=== PATIENT | male | born 1965 | race Caucasian/White ===

== ENCOUNTER → 2016-07-05 | Outpatient (CLI) | payer OTHER ==
[~2016-07-05] MED LIST: HYDR-3454 PO; HYDR-3583 PO; METH4TAB PO; PNT40TEC PO; SCR1T PO; TRM50T PO; VARE1TAB19
--- NOTE | 2016-07-05 13:49 | Diagnostic Imaging Report ---
AP and frog-leg lateral views of the left hip. INDICATION: Left hip pain. FINDINGS: There is mild joint space narrowing and minimal subchondral sclerosis. There is minimal osteophyte formation. No fracture, dislocation, or radiopaque foreign body. IMPRESSION: Mild degenerative changes. Dictated by: Dictated on workstation # [id number]
--- NOTE | 2016-07-05 14:44 | Diagnostic Imaging Report ---
Two views of the right shoulder. INDICATION: Right shoulder pain. FINDINGS: No fracture or focal osseous lesion seen. No significant degenerative changes in the glenohumeral or acromioclavicular joints. IMPRESSION: Unremarkable exam. Dictated by: Dictated on workstation # [id number]
== END ==
LOC: RAD 09:38
PROVIDERS: ATTEND Neuromusculoskeletal Medicine, Sports Medicine
DX: Z02.71 Encounter for disability determination (principal)
CPT/HCPCS: 73030; 73502

== ENCOUNTER 2018-09-25 18:37 | Emergency (ER) | payer SELFPAY ==
[~2018-09-25] VITALS: Ht 180.3 cm; Wt 68.0 kg
[2018-09-25] MEDS ORDERED: TETANUS,DIPTH,PERTUSS P/F (BOOSTRIX) 0.5 ML VIAL IM ONE (19:00)
[2018-09-25 19:02] LABS: BASOPHILS # (AUTO) 0.1 10^3/uL (0.0-0.1); BASOPHILS % (AUTO) 1 % (0-10); EOSINOPHILS # (AUTO) 0.4 10^3/uL (0.0-0.3); EOSINOPHILS % (AUTO) 3 % (0-10); HEMATOCRIT 40 % (40-54); HEMOGLOBIN 13.9 G/DL (13.3-17.7); LYMPHOCYTES # (AUTO) 3.7 X 10^3 (1.0-4.0); LYMPHOCYTES % (AUTO) 31 % (12-44); MEAN CORPUSCULAR HEMOGLOBIN 32 PG (25-34); MEAN CORPUSCULAR HGB CONC 34 G/DL (32-36); MEAN CORPUSCULAR VOLUME 92 FL (80-99); MEAN PLATELET VOLUME 8.8 FL (7.4-10.4); MONOCYTES # (AUTO) 1.5 X 10^3 (0.0-1.0); MONOCYTES % (AUTO) 12 % (0-12); NEUTROPHILS # (AUTO) 6.6 X 10^3 (1.8-7.8); NEUTROPHILS % (AUTO) 54 % (42-75); PLATELET COUNT 392 10^3/uL (130-400); RED CELL DISTRIBUTION WIDTH 13.2 % (10.0-14.5); WHITE BLOOD COUNT 12.2 10^3/uL (4.3-11.0)
[2018-09-25 19:14] LABS: PROTHROMBIN TIME PATIENT 13.5 SEC (12.2-14.7)
[2018-09-25] MEDS ORDERED: LACTATED RINGERS 1,000 ML IV ONE (19:15)
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
[2018-09-25 19:22] LABS: ALANINE AMINOTRANSFERASE 25 U/L (0-55); ALBUMIN 4.3 GM/DL (3.2-4.5); ALKALINE PHOSPHATASE 71 U/L (40-136); BILIRUBIN,TOTAL 0.5 MG/DL (0.1-1.0); BUN/CREATININE RATIO 11; CALCIUM 9.7 MG/DL (8.5-10.1); CARBON DIOXIDE 26 MMOL/L (21-32); CHLORIDE 107 MMOL/L (98-107); CREATININE SERUM 1.07 MG/DL (0.60-1.30); GFR ESTIMATED > 60; GLUCOSE 96 MG/DL (70-105); MAGNESIUM 2.1 MG/DL (1.8-2.4); POTASSIUM 3.4 MMOL/L (3.6-5.0); SODIUM 142 MMOL/L (135-145); TOTAL PROTEIN 7.1 GM/DL (6.4-8.2)
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
--- NOTE | 2018-09-25 19:54 | Diagnostic Imaging Report ---
INDICATION: Status post fall of porch. Pain. TECHNIQUE: AP pelvis 7:27 PM CORRELATION STUDY: None FINDINGS: The pelvis demonstrates no evidence for acute fracture. The pectineal lines and obturator rings are maintained. Pubic symphysis and SI joints are unremarkable. Hips unremarkable. IMPRESSION: Negative examination of the pelvis. Dictated by: Dictated on workstation # [id number]
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
--- NOTE | 2018-09-25 20:02 | Diagnostic Imaging Report ---
INDICATION: Fall of porch. TECHNIQUE: 2 views of the right hip. CORRELATION STUDY: None FINDINGS: Images of the hip demonstrate no evidence for acute fracture. Alignment is anatomic. The femoral head acetabular relationship is unremarkable. Small well-corticated bone fragment adjacent to the superior aspect the acetabulum, likely of no significance. Benign-appearing sclerotic foci over the rami and neck likely of no significance. The bony trabecular pattern is intact. IMPRESSION: 1. Negative for acute bony abnormality of the right hip. Dictated by: Dictated on workstation # [id number]
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
--- NOTE | 2018-09-25 20:45 | NUR ---
C Collar removed per Dr Tijerina
[2018-09-25 21:15] VITALS: BP 141/63
== END 2018-09-25 21:15 | disposition home or self-care (01) ==
LOC: EDUNIT# 18:37 → ER 18:38
DX: S06.0X1A Concussion with loss of consciousness of 30 minutes or less, initial encounter (principal); S16.1XXA Strain of muscle, fascia and tendon at neck level, initial encounter; S39.012A Strain of muscle, fascia and tendon of lower back, initial encounter; R40.2142 Coma scale, eyes open, spontaneous, at arrival to emergency department; R40.2252 Coma scale, best verbal response, oriented, at arrival to emergency department; R40.2362 Coma scale, best motor response, obeys commands, at arrival to emergency department; F17.210 Nicotine dependence, cigarettes, uncomplicated; Z98.890 Other specified postprocedural states; Z87.19 Personal history of other diseases of the digestive system; Z23 Encounter for immunization; Y01.XXXA Assault by pushing from high place, initial encounter
CPT/HCPCS: 36415; 70450; 71045; 72125; 72128; 72131; 72170; 73030; 73502; 80053; 80320; 83735; 85025; 85610; 85730; 90471; 90715; 93041; 96360

== ENCOUNTER → 2022-05-03 | Outpatient (CLI) | payer BC ==
[~2022-05-03] VITALS: Ht 180.3 cm; Wt 70.0 kg
== END | disposition home or self-care (01) ==
LOC: PREOP 05:32
PROVIDERS: ATTEND Surgery
DX: Z01.818 Encounter for other preprocedural examination (principal)

== ENCOUNTER 2022-05-10 11:45 | Day surgery (SDC) | payer BC ==
[~2022-05-10] VITALS: Ht 180 cm; Wt 70.0 kg
[2022-05-10] MEDS ORDERED: LACTATED RINGERS 1,000 ML IV STA (11:47)
--- NOTE | 2022-05-10 12:10 | Progress Note-Pre Operative ---
Pre-Operative Progress Note Date of Available H&P: Apr 25, 2022 Date H&P Reviewed: May 10, 2022 Time H&P Reviewed: 12:08 History & Physical: H&P Reviewed, Patient Examed, No changes noted Pre-Operative Diagnosis: Positive cologuaJAZMIN Medrano DO May 10, 2022 12:10
[2022-05-10] MEDS ORDERED: PROPOFOL INJECTION 50 ML IV ONE (12:24)
[2022-05-10 12:25] VITALS: BP 120/59
[2022-05-10] MEDS ORDERED: MIDAZOLAM 2 MG/2 ML (VERSED) VIAL ONE (13:03)
[2022-05-10] MEDS ORDERED: proPOfol 200 MG/20 ML (DIPRIVAN) VIAL IV ONE (13:16)
--- NOTE | 2022-05-10 13:50 | Discharge Inst-Simple/Standard ---
Discharge Inst-Standard Patient Instructions/Follow Up Plan of Care/Instructions/FU: Wilfrido - 2 weeks Activity as Tolerated: Yes Discharge Diet: Regular Diet (increase fiber) JAZMIN COLLADO DO May 10, 2022 13:50
--- NOTE | 2022-05-10 13:51 | Anesthesia-General Post-Op ---
MAC Patient Condition Mental Status/LOC: Same as Preop Cardiovascular: Satisfactory Nausea/Vomiting: Absent Respiratory: Satisfactory Pain: Controlled Complications: Absent Post Op Complications Complications None Follow Up Care/Instructions Patient Instructions None needed. Anesthesiology Discharge Order Discharge Order Patient is doing well, no complaints, stable vital signs, no apparent adverse anesthesia problems. No complications reported per nursing. ANGELICA TOMAS CRNA May 10, 2022 13:51
[2022-05-10 13:53] VITALS: BP 99/53
[2022-05-10 13:58] VITALS: BP 114/58
[2022-05-10 14:02] VITALS: BP 115/53
[2022-05-10 14:13] VITALS: BP 115/53
--- NOTE | 2022-05-10 23:46 | OPERATIVE REPORT ---
DATE OF SERVICE: 05/10/2022 PREOPERATIVE DIAGNOSIS: Positive cologuard. POSTOPERATIVE DIAGNOSES: Diverticulosis, colon polyps. PROCEDURE: Colonoscopy with hot biopsy polypectomy x10 and fulguration x15. SURGEON: Jazmin Anna DO ANESTHESIA: Per BALLOON TESTER. ESTIMATED BLOOD LOSS: None. COMPLICATIONS: None. INDICATIONS: The patient is a 56-year-old male who had positive cologuard test. He understands the risks and benefits of the procedure and wished to proceed. Consent was signed and in chart. DESCRIPTION OF PROCEDURE: The patient was taken to the endoscopy suite, placed in the left lateral recumbent position. Timeout was performed. Digital rectal exam was performed. No palpable polyps, masses or ulcerations. Scope was inserted in the rectum and advanced all the way to the cecum with minimal difficulty. Prep was adequate. Scope was slowly retracted back. No polyps, masses, or ulcerations in the cecum, ascending, transverse and descending colon. In the sigmoid distal portion, one small polyp was present, which hot biopsy polypectomy was performed. Scope was then slowly retracted back to the rectum where multiple polyps were present, which hot biopsy polypectomy was performed 10 polypectomies performed. Lots of small polyps as well that were fulgurated, 15 in total. Scope was then slowly retracted back and inserted multiple times, noting no other pathology. Scope was slowly retracted back until completely removed. RECOMMENDATIONS: I would recommend repeat colonoscopy in 3 months for reevaluation to make sure all these areas have been eradicated, any changes before then would be seen at that time. We would recommend high fiber diet. He will follow up pathology in 2 weeks. Job ID: [id number] DocumentID: [id number] Dictated Date: 05/10/2022 13:52:08 Instrumentation Technologist Date: 05/10/2022 23:45:00 Dictated By: JAZMIN ANNA DO [facility] MED[facility] CENTERAfshin
== END 2022-05-10 14:24 | disposition home or self-care (01) ==
LOC: ENDO 11:45
PROVIDERS: ATTEND Surgery
DX: K63.5 Polyp of colon (principal); K57.30 Diverticulosis of large intestine without perforation or abscess without bleeding; F17.210 Nicotine dependence, cigarettes, uncomplicated
CPT/HCPCS: 88305

== ENCOUNTER 2022-08-25 06:35 | Outpatient (CLI) | payer BC ==
[~2022-08-25] VITALS: Ht 180.3 cm; Wt 68.2 kg
== END 2022-08-25 15:52 | disposition home or self-care (01) ==
LOC: PREOP 06:35
PROVIDERS: ATTEND Specialist
DX: Z01.818 Encounter for other preprocedural examination (principal)

== ENCOUNTER 2022-09-02 06:24 | Day surgery (SDC) | payer BC ==
[~2022-09-02] VITALS: Ht 180.3 cm; Wt 68.2 kg
[2022-09-02] MEDS ORDERED: MOXIFLOXACIN OPHTH SOLN 5 MG/ML 0.3 ML SYRINGE OP ONE (06:45)
[2022-09-02] MEDS ORDERED: TIMOLOL 0.5% (CATARACTS) 0.3 ML BTL OU PRN (06:45)
[2022-09-02] MEDS ORDERED: POVIDONE (BETADINE) OPHTH SOLN 5% 30 ML OP ONE (06:45)
[2022-09-02] MEDS: TETRACAINE 0.5% OPHTH SOLN 4 ML BTL (SINGLE DOSE ONLY) OU PRN ×4 (06:50→07:06)
[2022-09-02] MEDS: TROPICAMIDE 1% OPH SOLN (MYDRIACYL) 15 ML BTL OP SCH ×3 (06:54→07:06)
[2022-09-02] MEDS: PHENYLEPHRINE 10% OPHTH (NEO-SYN) 5 ML BTL OU SCH ×3 (06:54→07:06)
[2022-09-02 06:57] VITALS: BP 119/59
[2022-09-02] MEDS ORDERED: MIDAZOLAM 2 MG/2 ML (VERSED) VIAL ONE (07:02)
--- NOTE | 2022-09-02 07:55 | Ophthalmologist Pre-Op Note ---
Pre-Operative Progress Note H&P Reviewed The H&P was reviewed, patient examined and no changes noted. Date H&P Reviewed: September 02, 2022 Time H&P Reviewed: 07:38 Pre-Op Dx Cataract, Left Eye ROLANDO TANNER MD September 02, 2022 07:55
[2022-09-02 07:56] VITALS: BP 112/58
--- NOTE | 2022-09-02 07:56 | Ophthalmology Operative Report ---
Cataract removal/placement IOL PREOPERATIVE DIAGNOSIS: Cataract Left Eye POSTOPERATIVE DIAGNOSIS: Cataract Left Eye PROCEDURE: Cataract removal and placement of posterior chamber implant, left eye SURGEON: Audie Tanner ANESTHESIA: Topical with sedation COMPLICATIONS: None ESTIMATED BLOOD LOSS: Minimal DESCRIPTION OF PROCEDURE: After proper informed consent was obtained, the patient, a 56 male, was taken to the Operating Room and the left eye was anesthetized with tetracaine. The left eye was then prepped and draped in the usual manner. A wire lid speculum was placed. A paracentesis was made at the left hand position. Preservative free lidocaine was injected into the anterior chamber followed by viscoelastic. A clear corneal incision was made in the temporal position. A capsulorrhexis was preformed and the central nuclear and cortical material were removed. The posterior capsule was polished and an Girish 20.5 AU00T0 was placed into the capsular bag. The residual viscoelastic was aspirated and balanced saline solution was injected into the anterior chamber. Moxifloxacin was injected into the anterior chamber. The wound was checked and found to be water tight. The patient tolerated the procedure well without complications. AUDIE TANNER MD September 02, 2022 07:56
[2022-09-02] MEDS ORDERED: acetaZOLAMIDE ER 500 MG CAP (DIAMOX SEQUELS) PO ONE (09:30)
--- NOTE | 2022-09-02 12:20 | Anesthesia-General Post-Op ---
MAC Patient Condition Mental Status/LOC: Same as Preop Cardiovascular: Satisfactory Nausea/Vomiting: Absent Respiratory: Satisfactory Pain: Controlled Complications: Absent Post Op Complications Complications None Follow Up Care/Instructions Patient Instructions None needed. Anesthesiology Discharge Order Discharge Order Patient is doing well, no complaints, stable vital signs, no apparent adverse anesthesia problems. No complications reported per nursing. FABIO CASTAÑEDA CRNA September 02, 2022 12:20
== END 2022-09-02 08:00 | disposition home or self-care (01) ==
LOC: SDC 06:24
PROVIDERS: ATTEND Specialist
DX: H25.9 Unspecified age-related cataract (principal); F17.210 Nicotine dependence, cigarettes, uncomplicated
CPT/HCPCS: 66984; V2632

== ENCOUNTER 2022-09-13 05:34 | Outpatient (CLI) | payer BC | END 2022-09-13 15:39 | disposition home or self-care (01) | LOC: PREOP 05:34 | PROVIDERS: ATTEND Specialist | DX: Z01.818 Encounter for other preprocedural examination (principal) ==

== ENCOUNTER 2022-09-16 07:58 | Day surgery (SDC) | payer BC ==
[~2022-09-16] VITALS: Ht 180.3 cm; Wt 68.2 kg
[2022-09-16] MEDS ORDERED: TIMOLOL 0.5% (CATARACTS) 0.3 ML BTL OU PRN (08:00)
[2022-09-16] MEDS ORDERED: POVIDONE (BETADINE) OPHTH SOLN 5% 30 ML OP ONE (08:00)
[2022-09-16] MEDS ORDERED: MOXIFLOXACIN OPHTH SOLN 5 MG/ML 0.3 ML SYRINGE OP ONE (08:00)
[2022-09-16] MEDS: TETRACAINE 0.5% OPHTH SOLN 4 ML BTL (SINGLE DOSE ONLY) OU PRN ×3 (08:07→08:24)
[2022-09-16 08:10] VITALS: BP 108/77
[2022-09-16] MEDS: PHENYLEPHRINE 10% OPHTH (NEO-SYN) 5 ML BTL OU SCH ×3 (08:16→08:24)
[2022-09-16] MEDS: TROPICAMIDE 1% OPH SOLN (MYDRIACYL) 15 ML BTL OP SCH ×3 (08:17→08:24)
[2022-09-16] MEDS ORDERED: MIDAZOLAM 2 MG/2 ML (VERSED) VIAL ONE (08:39)
--- NOTE | 2022-09-16 08:47 | Ophthalmologist Pre-Op Note ---
Pre-Operative Progress Note H&P Reviewed The H&P was reviewed, patient examined and no changes noted. Date H&P Reviewed: Sep 16, 2022 Time H&P Reviewed: 08:47 Pre-Op Dx Cataract, Right Eye ROLANDO TANNER MD Sep 16, 2022 08:47
--- NOTE | 2022-09-16 09:08 | Ophthalmology Operative Report ---
Cataract removal/placement IOL PREOPERATIVE DIAGNOSIS: Cataract Right Eye POSTOPERATIVE DIAGNOSIS: Cataract Right Eye PROCEDURE: Cataract removal and placement of posterior chamber implant, right eye SURGEON: Audie Tanner ANESTHESIA: Topical with sedation COMPLICATIONS: None ESTIMATED BLOOD LOSS: Minimal DESCRIPTION OF PROCEDURE: After proper informed consent was obtained, the patient, a 56 male, was taken to the Operating Room and the right eye was anesthetized with tetracaine. The right eye was then prepped and draped in the usual manner. A wire lid speculum was placed. A paracentesis was made at the left hand position. Preservative free lidocaine was injected into the anterior chamber followed by viscoelastic. A clear corneal incision was made in the temporal position. A capsulorrhexis was preformed and the central nuclear and cortical material were removed. The posterior capsule was polished and Girish 21.5 AU00T0 IOL was placed into the capsular bag. The residual viscoelastic was aspirated and balanced saline solution was injected into the anterior chamber. Moxifloxacin was injected into the anterior chamber. The wound was checked and found to be water tight. The patient tolerated the procedure well without complications. AUDIE TANNER MD Sep 16, 2022 09:08
[2022-09-16 09:11] VITALS: BP 117/61
[2022-09-16] MEDS ORDERED: acetaZOLAMIDE ER 500 MG CAP (DIAMOX SEQUELS) PO ONE (10:30)
--- NOTE | 2022-09-16 13:25 | Anesthesia-General Post-Op ---
MAC Patient Condition Mental Status/LOC: Same as Preop Cardiovascular: Satisfactory Nausea/Vomiting: Absent Respiratory: Satisfactory Pain: Controlled Complications: Absent Post Op Complications Complications None Follow Up Care/Instructions Patient Instructions None needed. Anesthesiology Discharge Order Discharge Order Patient is doing well, no complaints, stable vital signs, no apparent adverse anesthesia problems. No complications reported per nursing. JACLYN BERMAN CRNA Sep 16, 2022 13:25
== END 2022-09-16 09:12 | disposition home or self-care (01) ==
LOC: SDC 07:58
PROVIDERS: ATTEND Specialist
DX: H26.9 Unspecified cataract (principal); F17.210 Nicotine dependence, cigarettes, uncomplicated
CPT/HCPCS: 66984; V2632